=== PATIENT | female | born 1950 | race Caucasian/White ===

== ENCOUNTER 2025-01-20 08:26 | Inpatient (IN) | payer OTHER, SELFPAY ==
[2025-01-19] VITALS (8 sets, daily range): BP systolic 145–197; BP diastolic 82–131; BMI 33.8; BMI 33.1
[2025-01-19 08:50] LABS: Glucose - Point of Care 208 mg/dl (70-99)
--- NOTE | 2025-01-19 08:55 | EDRN ---
Dr. Reid in room at 8:55 and also present in CT scan.
--- NOTE | 2025-01-19 09:01 | ED.CVA ---
History of Present Illness
General
Chief Complaint: CVA/TIA Symptoms
Time Seen by Provider: 01/19/25 09:00
Onset of Stroke Symptoms
Onset of symptoms known: No
Time pt last seen normal is known: Yes
Date last time pt seen normal: 01/18/25
History of Present Illness
History of Present Illness:
TIME OF INITIAL EVALUATION
- 9 AM
REVIEW OF OLD RECORDS
- The patient has history of high blood pressure and hyperlipidemia. I reviewed old records but there were no other admissions to the hospital.
Note:
CHIEF COMPLAINT(S)
Left-sided weakness and facial droop.
HISTORY OF PRESENT ILLNESS
The patient is a 74-year-old female with left-sided weakness, particularly in the arm and face, noted upon waking at 8:00 AM. Last seen normal the previous night at 10:30 PM. She attempted to peanut picker a tissue with her left hand but was unable to do
so, and her spouse noted a facial droop on the left side. She has no symptoms suggesting leg weakness and does not take any anticoagulants. The neurologist commenced a 'stroke alert' protocol due to possible cerebrovascular accident, and the patient
is undergoing a CT scan for further evaluation. There is a concern for the timeline of the event, given that the last known normal was much earlier, at 10:30 PM the previous night, thus thrombolysis is not considered safe.
ADDITIONAL HISTORY OBTAINED FROM SOURCES OTHER THAN THE PATIENT
According to the spouse, the patient was in her normal state at 10:30 PM the previous night and did not report any overnight awakenings or disturbances.
SOCIAL HISTORY
The patient is a former smoker, having quit years ago.
FAMILY HISTORY
Family history of tremors; the patients father also had a similar condition.
PHYSICAL EXAM
- General: Well appearing in no distress
- HEENT: Moist oral mucosa
- Cardiovascular: No murmurs, normal heart rate, regular rhythm, No chest wall tenderness
- Pulmonary: No respiratory distress, breath sounds are clear and equal
- Abdomen: Soft with no peritoneal signs, no tenderness
- Neurologic: Excellent strength in all extremities although she reports some subjective weakness in the left upper extremity, no facial asymmetry, mild aphasia and mild dysarthria
- Psychiatric: Some mild confusion/aphasia noted however overall is answering questions appropriately
- Extremities: Nontender, no edema, moves all extremities equally
- Skin: No rash, no lesions
DIFFERENTIAL DIAGNOSIS
The Differential Diagnosis includes, in no particular order and is not limited to:
1. Cerebrovascular accident (ischemic or hemorrhagic stroke)
2. Transient ischemic attack
3. Intracranial hemorrhage
4. Seizure
5. Brain tumor
6. Migraine with aura
7. Elizabeth palsy
8. Multiple sclerosis
9. Metabolic disturbance (e.g., hypoglycemia)
10. Vestibular disorder
RADIOLOGY
- CT, CTA, CTP ordered
EKG
- Sinus 87, left axis deviation, left bundle branch block, prolonged QTc
LABS
- Initial blood glucose 208, CBC unremarkable
UPDATE
01/19/25 - 09:30
The initial CAT scan indicates a recent stroke without evidence of severe bleeding. Neurological assessment reveals minor weakness on the left side, but overall strength remains good. The patient experiences some communication difficulties,
specifically with speech, but comprehension is intact. Blood pressure remains elevated at 167/84, and the patient did not take their prescribed medication, Losartan, today. The neurologist will be consulted again to explore potential reversible
options for the current condition.
Stroke alert. Last normal 10:30pm last night. Woke up at 8a and could not peanut picker Kleenex with her left hand and noted facial asymmetry along w/ some aphasia and dysarthria. Still has mild aphasia and subjective LUE weakness currently. CT
head no bleed, but there is diminished attenuation R frontal M4. CTP 0%. CTA H/N negative. Initial BP 190s/130s and repeat w/o intervention 160s/80s. She did not take her morning Losartan. EKG sinus LBBB. She takes no antiplatelets nor
anticoagulants.
SUMMARY OF ENCOUNTER
Patient presented with left-sided weakness and facial droop, suggesting a cerebrovascular event.
DISPOSITION
Plan to keep patient in the hospital for further evaluation for acute CVA.
ASSESSMENT
Right-sided brain abnormality observed on CT scan, indicative of a likely stroke.
INDEPENDENT REVIEW OF LABS AND INTERPRETATION OF TESTS
My independent interpretation of the CT scan is an abnormality on the right side of the brain consistent with a stroke event.
MEDICATION RECONCILIATION
Plavix (clopidogrel) and aspirin were administered for antiplatelet therapy. Losartan resumed at a dose of 50 mg for blood pressure management.
MEDICAL DECISION MAKING
1. Number & Complexity of Problems: Potential stroke with focal neurological deficits.
2. Data Reviewed: CT scan reviewed indicating right-sided abnormality.
3. Risk: Consideration of admission was made due to complexity and risk of progression of neurological symptoms; continued inpatient evaluation is appropriate.
PATHOLOGIES TO CONSIDER
- Stroke (focal neurologic deficits + sudden onset).
I called at [facility] to get losartan dosing, however their office is closed on Saturdays
Phy Exam
Physical Exam
Physical Exam:
See HPI
Course
Orders/Labs/Results
Orders:
Orders
01/19/25 08:57
Electrocardiogram (*1) Urgent
Reason for Study: Chest Pain
EKG- Treatment ONCE
IV Insert/Care/Rem.- Treatment PRN
01/19/25 08:59
Complete Blood Count/With Diff Urgent
Comprehensive Metabolic Panel Urgent
Prothrombin Time Urgent
Troponin I Urgent
01/19/25 09:[address]
CT BRAIN PERF STROKE ALERT Urgent
Comment:
Reason For Exam: wake up stroke
CT HEAD STROKE ALERT W/o Cont Urgent
Comment:
Reason For Exam: wake up stroke L weak
CT HEAD/NECK ANG STROKE ALERT Urgent
Comment:
Reason For Exam: wake up stroke
Abnormal Lab Results
01/19/25
08:49
POC Glucose 208 H mg/dl
(70-99)
01/19/25 08:59
Vital Signs
Initial and Last Documented VS:
Initial Vital Signs
Temp Pulse Resp BP Pulse Ox
36.6 C 104 18 197/131 96
01/19/25 08:47 01/19/25 08:47 01/19/25 08:47 01/19/25 08:47 01/19/25 08:47
Last Documented Vital Signs
Temp Pulse Resp BP Pulse Ox
36.6 C 94 15 167/84 97
01/19/25 08:47 01/19/25 09:25 01/19/25 09:25 01/19/25 09:25 01/19/25 09:25
*Pulse Oximetry
SaO2: 96
Oxygen Mode of Delivery: Room air
Patient hypoxic: no
*Mica Plate Layer Interpretation
Rate: normal
Interpretation: normal
Heart Rate: 88
Rhythm: sinus
*Critical Care Note
Total Time (30-74mins, 75-104mins- exclusive of procedures): Not Applicable
ED Attending Note
-
Portions of this chart may have been created with voice recognition software.� Occasional wrong word or��sound alike� substitutions may have occurred due to the inherent limitations of voice recognition software.
Discharge Plan
Interventions
Interventions:
*Risk Screen - Suicide Last Done: 01/19/25 08:47
*General Assessment Last Done: 01/19/25 09:26
*Neglect/Abuse Screening Last Done: 01/19/25 08:47
*ED- Fall Risk Assessment Last Done: 01/19/25 09:26
*ED COVID-19 Vaccine History Last Done: 01/19/25 09:26
Discharge Date and Time
Print Language: CROATIAN
[2025-01-19 09:06] LABS: % Basophils 0.7 % (0-2); % Eosinophils 3.3 % (0-6); % Immature Granulocytes 0.3 % (0-0.5); % Lymphocytes 42.2 % (20.5-51.1); % Monocytes 7.9 % (1.7-9.3); % Neutrophils 45.6 % (42.2-75.2); Absolute Eosinophils 0.2 10^3/uL (0-0.7); Absolute Lymphocytes 2.5 10^3/uL (1.2-3.4); Absolute Monocytes 0.5 10^3/uL (0.1-0.6); Absolute Neutrophils 2.7 10^3/uL (1.4-6.5); Hematocrit 42.3 % (37.0-47.0); Hemoglobin 14.5 g/dL (12.0-16.0); Mean Corp Hgb Conc. 34.3 g/dL (33.0-37.0); Mean Corpuscular Hgb 29.6 pg (27.0-31.0); Mean Corpuscular Volume 86.3 fL (81.0-99.0); Mean Platelet Volume 9.6 fL (7.4-10.4); Nucleated Red Blood Cells % 0 %; Platelet Count 217 10^3/uL (130-400); Red Cell Dist. Width 13.2 % (11.5-14.5); White Blood Cell Count 5.8 10^3/uL (4.8-10.8)
--- NOTE | 2025-01-19 09:15 | CON.NEURO ---
Consultation
Order
Date of Consultation: 01/19/25
Requesting Provider: Zeke Gaytan DO
Reason for Consult: Stroke alert
Called in at 8:52 AM
Neurology Consultation Note.
HPI: This is a 74-year-old left-handed woman who presented to [facility] on 01/19/2025 with dysarthria and left-sided hemiparesis. The patient reports waking up this morning experiencing weakness on her left side and difficulty with
speech. Last time seen in usual state of health�11 PM on 01/20/2025. No reports of headache, change in vision, sensation.
Maty takes losartan regularly for her hypertension. She does not report any recent changes in her medication regimen or any issues with adherence.
ER VS: 197/131, 104, afebrile
Labs: [id number]
CT head wo contrast-subtle diminished attenuation involving dawkins and white matter in the right frontal lobe M4 distribution
CTA head/neck-pending
PMH:HTN
SH: , non-smoker
FH: Tremor
All:NKDA
ROS: Positive for dysarthria, left-sided weakness.
NIH Stroke Scale
1A Level of Consciousness: 0/3
1B LOC Questions: 0/2
1C LOC Commands: 0/2
2 Best Gaze: 0/2
3 Visual: 0/3
4 Facial Palsy: 0/3
5A Motor Arm LEFT: 1/4
5B Motor Arm RIGHT: 0/4
6A Motor Leg LEFT: 0/4
6B Motor Leg RIGHT: 0/4
7 Limb Ataxia: 0/2
8 Sensory: 0/2
9 Best Language: 0/3
10 Dysarthria: 1/2
11 Extinction/Inattention: 0/2 .
Total NIHSS: 2
Assessment and Plan:
I. Acute right thalamic stroke. No evidence of cortical sensory dysfunction. Not a candidate for IV TNK due to timing of the symptoms onset
II. Hypertensive emergency
III. Hyperglycemia
- Continue Telemetry monitoring
- Aspiration precautions
- Cautious lowering of BP by approximately 15 % during the first 24 hours is SBP >220 mmHg or diastolic blood pressure >120 mmHg
- Restart antihypertensive medications if BP>140/90 mmHg and neurologically stable in 24 to 48 hours after stroke onset
- Please follow-up CTA head and neck results
- DAPT after Plavix load
-TTE
-Lipitor 40 mg QHS.
-Please check HbA1C, LDL.
-Brain MRI without renee
-DVT prophylaxis.
I personally reviewed all radiology and labs along with past medical records pertinent to current medical problems. Total time spent in patient care is 60 minutes.
Thank you for allowing us to participate in the care of this patient. We will continue to follow. Please do not hesitate to contact us with any questions or concerns.
Subjective/Objective
Subjective Data
Date of Service: January 19, 2025
Objective Data
Vital Signs
Temp Pulse Resp BP Pulse Ox
36.6 C 104 18 197/131 96
01/19/25 08:47 01/19/25 08:47 01/19/25 08:47 01/19/25 08:47 01/19/25 09:04
Lab Results
01/19/25 08:59
Vital Signs and Labs
-
Vital Signs and Labs:
Vital Signs
Temp Pulse Resp BP Pulse Ox
36.6 C 104 18 197/131 96
01/19/25 08:47 01/19/25 08:47 01/19/25 08:47 01/19/25 08:47 01/19/25 09:04
Lab Results
01/19/25 08:59
[2025-01-19 09:25] LABS: INR 0.91; PT 12.5 Sec (11.4-14.6)
--- NOTE | 2025-01-19 09:28 | EDRN ---
Dr. Comer in room w/ pt.
[2025-01-19 09:33] LABS: Troponin I < 0.012 ng/ml
[2025-01-19] MEDS: PLAVIX 300 MG PO (09:58)
[2025-01-19] MEDS: COZAAR 50 MG PO (09:58)
[2025-01-19] MEDS: ASPIRIN 325 MG PO (09:58)
[2025-01-19 10:18] LABS: ALT (SGPT) 26 U/L (0-35); AST (SGOT) 21 U/L (14-36); Albumin 4.3 g/dl (3.5-5.0); Alkaline Phosphatase 71 U/L (38-126); Blood Urea Nitrogen 15 mg/dl (7-17); Calcium 9.6 mg/dl (8.4-10.2); Carbon Dioxide 26 mmol/L (22-30); Chloride 108 mmol/L (98-107); Estimated Creatinine Clearance 79 ml/min; Glucose 225 mg/dl (70-99); Sodium 140 mmol/L (135-145); Total Bilirubin 0.4 mg/dl (0.2-1.3); Total Protein 7.3 g/dl (6.3-8.2); eGFR > 60.00
--- NOTE | 2025-01-19 10:23 | EDRN ---
Hospitalist in room w/pt at this time.
--- NOTE | 2025-01-19 10:38 | HPS.HSE ---
Family Physician
-
Family Physician: Randolph Rivas
Chief Complaint
-
Left-sided weakness
History of Present Illness
74-year-old female past medical history as below who is presenting from home with complaints of left upper extremity weakness. Patient went to bed last night without any difficulty. This morning when she woke up she had trouble with her left upper
extremity. Was unable to hold onto pack of tissue. Also with slurred speech and expressive aphasia. Denied any left lower extremity weakness. Denies any left sided numbing or tingling sensation. Denies any headache, neck pain, vision problems,
chest pain, shortness of breath. Denies any lightheadedness, dizziness, nausea, vomiting. Patient was found to be a stroke alert in the ER and underwent CT of the head and CT angiogram of the head and neck. Patient states she has a history of
hypertension and has been taking losartan. States her blood pressure is elevated with systolic blood pressure in 150s at times. Also was recently started on atorvastatin. Did have a drink of alcohol last night. However occasionally drinks.
Currently states her left upper extremity weakness is improving.
Medical History
Past Medical History
Past Medical History: Reports HTN and Hypercholesterolemia
Past Surgical History: Reports None
Social History
Tobacco: Former Smoker
Alcohol: Occasional
Personal:
Family History
Family History: Not pertinent
Allergies / Home Medications
Allergies reflects when Allergies were last updated in [facility].
Home Medications with original date entered in [facility]
Allergy/Medication List:
Allergies
Allergy/AdvReac Type Severity Reaction Status Date / Time
No Known Allergies Allergy Verified 01/19/25 09:47
Home Medications
atorvastatin 10 mg tablet 10 mg PO DAILY 01/19/25
losartan 100 mg tablet 100 mg PO DAILY 01/19/25
Review of Systems
-
History Source: Patient
A 12 point ROS was completed and negative except as noted: Yes
Physical Exam
Vital Signs
Vital Signs
Temp Pulse Resp BP Pulse Ox
97.8 F 88 15 167/84 97
01/19/25 08:47 01/19/25 09:58 01/19/25 09:25 01/19/25 09:58 01/19/25 09:25
Physical Exam
General: Well Developed, Well Nourished, No Apparent Distress and Slurred Speech
HEENT: NormoCephalic, Moist mucous membranes, Atraumatic, Nose Appears Normal and Ears Appear Normal; No Hearing Impaired
Respiratory: Clear
Cardiac: S1/S2 and Regular Rhythm; No Murmur or Rub
GI: Soft, Non Tender, Non Distended and Normal Bowel Sounds; No Organomegaly
Rectal: Deferred by Provider
Musculoskeletal: No Clubbing, No Cyanosis and No Edema
Skin: No Rash
Neuro: Awake, Alert, Oriented, AO x 3, Nonfocal/grossly intact, Slurred Speech and Facial Droop; No No Motor Deficits (LUE weakness)
Psych: Calm
Laboratory Results
-
01/19/25 08:59
01/19/25 08:59
Laboratory Results
PT 12.5 Sec (11.4-14.6) 01/19/25 08:59
INR 0.91 01/19/25 08:59
Total Bilirubin 0.4 mg/dl (0.2-1.3) 01/19/25 08:59
AST 21 U/L (14-36) 01/19/25 08:59
ALT 26 U/L (0-35) 01/19/25 08:59
Alkaline Phosphatase 71 U/L (38-126) 01/19/25 08:59
Troponin I < 0.012 ng/ml 01/19/25 08:59
Data Reviewed
-
CT Scan: Report Reviewed by me, Discussed with Patient and Discussed with Family
Lab Data: Labs Reviewed by me and Discussed with Patient
Impression/Plan
-
#Left upper extremity weakness, slurred speech, facial droop likely secondary to TIA versus rule out CVA
CT of the head negative for acute pathology. No acute intracranial hemorrhage noted. Subtle diminished attenuation involving dawkins and white matter in the right frontal lobe M4 distribution. No mass effect. Relatively bilateral subcortical
chronic microvascular white matter ischemic change
CT angiogram of the head and neck without significant plaque, stenosis, occlusion or dissection
MRI of the brain ordered and pending
Status post loading dose of Plavix and aspirin
Start patient on dual antiplatelet regimen with aspirin and Plavix
Check lipid panel and A1c
Physical, occupational and speech therapy evaluation
Monitor on telemetry
If MRI positive for stroke send check echocardiogram
Permissive hypertension and blood pressure control per neurology
as needed blood pressure medication if systolic blood pressure getting 220/120
Continue with NIH stroke scale per the protocol
#Primary hypertension
#Hypertension emergency
Will need strict blood pressure control
Restart home regimen in morning
#Hyperlipidemia
Check lipid panel
Continue with Lipitor for now
#Obesity due to excess calories
Affects all aspect of medical care
DVT prophylaxis SCDs for now
Full code
I spent a total of 80 minutes with the patient or on the floor. More than 50% of this time involved counseling and coordination of care.
--- NOTE | 2025-01-19 15:49 | PTOTSP ---
Speech therapy
Presentation: Patient was fully oriented, followed commands, and participatory during the session. Patient shared that she feels as though she experiences slow processing as it takes her a second to 'come up with the words'. SHEET METAL WELDER also noted very mild
dysarthric speech (imprecise consonants, decreased volume, and short utterances). Patient stated that she feels as though her speech sounds (slurred) which would likely describe the dysarthric speech noted by SHEET METAL WELDER. Of note, patient's intelligibility
is WNL and patient is able to communicate her wants/ needs.
Swallowing Function: SHEET METAL WELDER observed patient with several bites of cracker and straw sips of thin liquid in which patient appeared to tolerate as she did not exhibit any overt clinical s/sx of aspiration or difficulty with mastication/ manipulation.
Patient denied any dysphagia complaints.
Per RN, patient tolerated meal tray (reg/ thin) and medications whole with thin liquids.
Recommendations:
1) Continuation of regular consistency solids and thin liquids
2) Standard aspiration precautions
3) Medications as tolerated
4) Consider speech/ lang/ cognitive evaluation
Plan: SHEET METAL WELDER will continue to follow to ensure tolerance; pending hospitalization.
[2025-01-20] VITALS (12 sets, daily range): BP systolic 107–174; BP diastolic 53–102; BMI 32.9
[2025-01-20 06:59] LABS: % Basophils 0.7 % (0-2); % Eosinophils 1.6 % (0-6); % Immature Granulocytes 0.5 % (0-0.5); % Lymphocytes 31.9 % (20.5-51.1); % Monocytes 6.8 % (1.7-9.3); % Neutrophils 58.5 % (42.2-75.2); Absolute Basophils 0.1 10^3/uL (0-0.2); Absolute Eosinophils 0.2 10^3/uL (0-0.7); Absolute Immature Granulocytes 0.1 10^3/uL (0-0.05); Absolute Monocytes 0.7 10^3/uL (0.1-0.6); Absolute Neutrophils 5.6 10^3/uL (1.4-6.5); Hematocrit 41.3 % (37.0-47.0); Mean Corp Hgb Conc. 33.9 g/dL (33.0-37.0); Mean Corpuscular Hgb 29.2 pg (27.0-31.0); Mean Platelet Volume 9.9 fL (7.4-10.4); Nucleated Red Blood Cells % 0 %; Platelet Count 250 10^3/uL (130-400); Red Cell Dist. Width 12.9 % (11.5-14.5); White Blood Cell Count 9.5 10^3/uL (4.8-10.8)
[2025-01-20 07:15] LABS: Glucose - Point of Care 204 mg/dl (70-99)
--- NOTE | 2025-01-20 07:33 | RR ---
A Rapid Response was called on this patient, please see Rapid Response form.
--- NOTE | 2025-01-20 07:33 | PTCARENOTE ---
NIHSS performed noted left sided facial droop, dysrthria, slurred speech, impaired vision. Rapid response and stroke alert called.
--- NOTE | 2025-01-20 07:35 | W.PN.NEURO.1 ---
Today's Communication / Plan
-
.
Subjective/Objective
Subjective Data
Date of Service: January 20, 2025
Stroke alert: called in: 7:18 AM
Neurology Follow up Note.
Ms. Meredith was noted to have worsening of left hemiparesis and worsening of NIH score from 1-6. The patient reports experiencing a 'little' headache.
VS: 107/79, 104, afebrile. Glucose�197.
The last assessment was reportedly done at 4 o'clock. BP at 23:46 was 184/90.
The patient's blood pressure was recorded at 189/130.
CT head( my read)-large R parenchymal ICH with min edema/shift.
Brain MRI-acute R MCA territory infarct, acute ICH (official read-pending).
LDL-69
PMH: HTN, DLP
SH: , non-smoker
FH: tremor
All:NKDA
ROS: Positive for dysarthria, left-sided weakness.
NIH Stroke Scale
1A Level of Consciousness: 0/3
1B LOC Questions: 0/2
1C LOC Commands: 0/2
2 Best Gaze: 0/2
3 Visual: 2/3
4 Facial Palsy: 0/3
5A Motor Arm LEFT: 1/4
5B Motor Arm RIGHT: 0/4
6A Motor Leg LEFT: 0/4
6B Motor Leg RIGHT: 0/4
7 Limb Ataxia: 1/2
8 Sensory: 0/2
9 Best Language: 0/3
10 Dysarthria: 2/2
11 Extinction/Inattention: 0/2 .
Total NIHSS: 6
Assessment and Plan:
I. Acute large R parenchymal ICH. Likely etiology�hemorrhagic conversion of R BG stroke. ICH score-1.
II. Hypertensive emergency
III. Hyperglycemia
- ICU transfer
- Telemetry monitoring
- Aspiration precautions
- Maintain elevation of HOB 30-45 degrees
- Continuous monitoring using pulse oximetry if O2 saturation is <96%
- Normal saline should be used for maintenance and replacement fluids.
- Neurosurgery consultation(notified)
- If elevated intracranial pressure is suspected or herniation is apparent in imaging- Hyperventilate to maintain pCO2 25mm for a maximum length of time of 6 hours; Osmotic diuresis using Mannitol: load 1g per kg IV bolus and maintain on 0.5g per kg
IV Q6h; check serum osmolality 1 hour prior to each dose. Dose should be held if serum osm>310
- Treat persistently elevated MAP>110 with Labetalol IV
- The available data from trials of patients with spontaneous ICH (the PATCH trial) suggest that empiric platelet transfusions in those without thrombocytopenia may be hazardous and should generally be avoided
- SCD/DEIDRA.
- The case was discussed with patient's spouse over the phone. All questions were answered.
I personally reviewed all radiology and labs along with past medical records pertinent to current medical problems. Total time spent in patient care is 60 minutes.
Thank you for allowing us to participate in the care of this patient. We will continue to follow. Please do not hesitate to contact us with any questions or concerns.
Objective Data
Vital Signs
Temp Pulse Resp BP Pulse Ox
36.8 C 99 18 146/93 96
01/20/25 03:59 01/20/25 03:59 01/20/25 03:59 01/20/25 03:59 01/20/25 03:59
Lab Results
01/20/25 06:29
PT 12.5 Sec (11.4-14.6) 01/19/25 08:59
INR 0.91 01/19/25 08:59
Sodium 140 mmol/L (135-145) 01/19/25 08:59
Potassium 4.0 mmol/L (3.5-5.1) 01/19/25 08:59
BUN 15 mg/dl (7-17) 01/19/25 08:59
Glucose 225 mg/dl (70-99) H 01/19/25 08:59
Calcium 9.6 mg/dl (8.4-10.2) 01/19/25 08:59
Patient Allergies
No Known Allergies Allergy (Verified 01/19/25 09:47)
Vital Signs and Labs
-
Vital Signs and Labs:
Vital Signs
Temp Pulse Resp BP Pulse Ox
37.2 C 104 16 107/79 95
01/20/25 07:15 01/20/25 07:15 01/20/25 07:15 01/20/25 07:15 01/20/25 07:15
Lab Results
01/20/25 06:29
01/20/25 06:29
PT Cancelled 01/20/25 07:21
INR Cancelled 01/20/25 07:21
APTT Cancelled 01/20/25 07:21
Sodium 137 mmol/L (135-145) 01/20/25 06:29
Potassium 4.4 mmol/L (3.5-5.1) 01/20/25 06:29
BUN 10 mg/dl (7-17) 01/20/25 06:29
Glucose 197 mg/dl (70-99) H 01/20/25 06:29
Calcium 9.7 mg/dl (8.4-10.2) 01/20/25 06:29
LDL Cholesterol, Calc 69 mg/dl 01/20/25 06:29
Medications
-
Medications:
Generic Name Dose Route Start Last Admin
Trade Name Freq PRN Reason Stop Dose Admin
Acetaminophen 650 mg 01/19/25 12:31
Acetaminophen 650 Mg Rectal Suppository RECTAL 02/16/25 12:30
Q4HPRN PRN
MOLINA, mild pain, or temp >100.4F
Acetaminophen 650 mg 01/19/25 12:31
Acetaminophen 325 Mg Tablet PO 02/16/25 12:30
Q4HPRN PRN
MOLINA, mild pain, or temp >100.4F
Atorvastatin Calcium 10 mg 01/20/25 08:00
Atorvastatin (Lipitor) 10 Mg Tablet PO 02/17/25 07:59
DAILY ARVIND
Hydralazine HCl 5 mg 01/19/25 12:31
Hydralazine 20 Mg/Ml Vial IV 02/16/25 12:30
Q4HPRN PRN
BP>220/120
Nicardipine/Sodium Chloride 40 mg in 200 mls @ 0 mls/hr 01/20/25 08:32
Cardene IV
PER PROTOCOL ARVIND
Protocol
Per Protocol
Losartan Potassium 100 mg 01/20/25 08:00
Losartan 100 Mg Tablet PO 02/17/25 07:59
DAILY ARVIND
Home Medications
-
Home Medications
atorvastatin 10 mg tablet 10 mg PO DAILY 01/19/25
losartan 100 mg tablet 100 mg PO DAILY 01/19/25
[2025-01-20 07:38] LABS: Blood Urea Nitrogen 10 mg/dl (7-17); Calcium 9.7 mg/dl (8.4-10.2); Carbon Dioxide 22 mmol/L (22-30); Chloride 108 mmol/L (98-107); Estimated Creatinine Clearance 78 ml/min; Glucose 197 mg/dl (70-99); HDL Cholesterol 65 mg/dl; LDL Cholesterol, Calculated 69 mg/dl; Potassium 4.4 mmol/L (3.5-5.1); Sodium 137 mmol/L (135-145); Total Cholesterol 161 mg/dl (50-199); Triglyceride 138 mg/dl (10-149); Very Low Density Lipoprotein 27 mg/dl (0-30); eGFR > 60.00
--- NOTE | 2025-01-20 08:22 | CON.INTV ---
Consultation
Consultation Request
Date/Time Consultation Requested: 01/20/2025
Date/Time Consultation Performed: 01/20/2025
Requesting Provider: Dhaval Pickens
Performing Provider: Jaelyn Moore
Reason for Consultation: Stroke
Medical History
-
Chief Complaint: Left-sided weakness
History of Present Illness:
Patient is a 80-year-old gentleman who was admitted to the hospital on 01/19 after he presented with complaints of left extremity weakness. Also reported some slurred speech and expressive aphasia. Stroke alert was called and patient had a CT head
as well as CTA of head and neck which did not show any large blockage. Patient was given loading dose of Plavix and continued on aspirin in addition. And was admitted to the hospitalist service. Patient was also evaluated by neurology service.
TNK was not pursued due to timing of the symptom onset and low large vessel blockage was noted on the imaging. Presumed diagnosis at admission was acute right thalamic stroke.
01/20, patient had change in neuro status, worsening dysarthria, prompting another stroke alert and had a CT and CTA which was suggestive of intracranial hemorrhage, following which patient was transferred to the ICU and meter reader inspector consult was
requested for further input.
Past Medical History
Past Medical History: Reports HTN and Hypercholesterolemia
Past Surgical History: Reports None
Social History
Tobacco: Former Smoker
Alcohol: Occasional
Personal:
Family History
Family History: Not pertinent
Allergies / Home Medications
Allergies / Home Medications
Allergies
Allergy/AdvReac Type Severity Reaction Status Date / Time
No Known Allergies Allergy Verified 01/19/25 09:47
Home Medications
�Medication �Instructions �Recorded �Confirmed �Last Taken �Type
atorvastatin 10 mg tablet 10 mg PO DAILY 01/19/25 01/19/25 01/18/25 History
losartan 100 mg tablet 100 mg PO DAILY 01/19/25 01/19/25 Unknown History
Review of Systems
-
Hematologic/Lymphatic: Other (Patient has dysarthric speech overall protecting airways, no new symptoms reported. Mild headache reported.)
Vitals / Labs / Diagnostic Testing
Vital Signs
Temp Pulse Resp BP Pulse Ox
98.9 F 104 16 107/79 95
01/20/25 07:15 01/20/25 07:15 01/20/25 07:15 01/20/25 07:15 01/20/25 07:15
Lab Data
01/20/25 06:29
01/20/25 06:29
Laboratory Results
01/19/25 01/20/25
08:59 07:21
PT 12.5 Cancelled
INR 0.91 Cancelled
APTT Cancelled
Diagnostic Testing:
Physical Exam
-
HEENT: Normocephalic and Other (Left facial droop noted, dysarthria noted.)
Cardiovascular: S1/S2
Respiratory: Clear
GI: Soft and Non Distended
Neurology: Awake and Alert
Skin: Warm
General: Comfortable
Assessment
-
#1. Acute CVA, now with hemorrhagic transformation
- CT and CTA on 01/19 were without any intracranial hemorrhage, TNK was not pursued due to time since onset of symptoms and patient was given Plavix load followed by dual antiplatelet therapy
- Follow-up CT head, 01/20 shows development of superior right frontal lobe hematoma with mild adjacent surrounding edema and mild cerebral sulcal effacement. No significant compression of lateral ventricle or midline shift. Hold both aspirin and
Plavix
- Monitor closely in ICU, every neurochecks, nicardipine drip, SBP target less than 140
- Neurology and neurosurgery service on case
- Follow-up CT scan per neurosurgery recommendations
- Patient dysarthric however currently protecting her airways
- Sodium goal, 140-145. Will give 3% normal saline bolus
#2. Hypertension
- Permissive hypertension was initially pursued, now considering intracranial hypertension, target SBP goal 100-140
- Nicardipine infusion as needed
- Discussed with neurosurgery service, A-line placed for invasive monitoring
#3. Hyperlipidemia
-Statins
DVT prophylaxis, SCDs for now.
Critical Care time 67 mins -- The patient is admitted for acute critical illness for the treatment of vital organ failure and/or prevention of further life-threatening conditions. Total care includes time spent in review of history, physical exam,
medications, hemodynamic/ventilator parameters, laboratory data, imaging and discussion with house staff, pharmacy, respiratory therapy, professor of religion, and nursing.
Data:
EKG 12/2024: Left bundle branch block
CT Head 12/2024: No acute intracranial hemorrhage.
Subtle diminished attenuation involving dawkins and white matter in the right frontal lobe M4 distribution. ASPECT: 9. No mass effect.
Otherwise, relatively mild bilateral subcortical chronic microvascular white matter ischemic change.
[2025-01-20 09:16] LABS: Glucose - Point of Care 209 mg/dl (70-99)
--- NOTE | 2025-01-20 09:26 | W.PN.HOSP.TC ---
Addendum entered and electronically signed by Dhaval Pickens MD 01/20/25 15:19:
Repeat CT head with persistent brain bleed. Per neurosurgery stable in size. Discussed with neurology, neurosurgery bar examiner. Patient will be transferred to [facility] under Dr Reed. Patient be transferred to [facility] ICU.
Discussed with ammunition specialist and case management and RN. signed a form. Family updated once again at bedside.
Original Note:
Today's Communication/Plan
-
Repeat CT head later today to assess
Hypertonic saline started
Monitor blood pressure with strict blood pressure control
Nicardipine drip ordered
Monitor closely in the ICU
Assessment / Plan
Assessment / Plan
General: Well Developed, Well Nourished, No Apparent Distress and Slurred Speech
HEENT: NormoCephalic, Moist mucous membranes, Atraumatic, Nose Appears Normal and Ears Appear Normal; No Hearing Impaired
Respiratory: Clear
Cardiac: S1/S2 and Regular Rhythm; No Murmur or Rub
GI: Soft, Non Tender, Non Distended and Normal Bowel Sounds; No Organomegaly
Rectal: Deferred by Provider
Musculoskeletal: No Clubbing, No Cyanosis and No Edema
Skin: No Rash
Neuro: Awake, Alert, Oriented, AO x 3, cranial nerves II to XII intact except for slurred speech, left-sided facial droop, left upper extremity weak, 4 out of 5 left upper extremity,
Psych:
#Left upper extremity weakness, slurred speech, facial droop and now with hemorrhagic conversion
CT of the head negative for acute pathology. No acute intracranial hemorrhage noted. Subtle diminished attenuation involving dawkins and white matter in the right frontal lobe M4 distribution. No mass effect. Relatively bilateral subcortical
chronic microvascular white matter ischemic change
CT angiogram of the head and neck without significant plaque, stenosis, occlusion or dissection
MRI of the brain results pending
Repeat CT head 01/20/25 with interval development of superior right frontal lobe acute hematoma measuring 3.2 x 2.9 x 3.5 cm yielding volume 17 cc. Mild adjacent surrounding edema. Mild cerebellar sulcal effacement. No significant compression of
the lateral ventricular midline shift. No other significant interval change.
Status post loading dose of Plavix and aspirin on admission. Aspirin and Plavix were discontinued.
Plan for strict blood pressure control and patient started nicardipine drip.
A-line placed for proper blood pressure management
Continue with NIH stroke scale and GCS
N.p.o. for now
Repeat CT head later today to assess for bleed.
Repeat BMP. Plan to start patient on 3% saline with goal of sodium 140-145 per neurosurgery
HOB 30-45%
Neurology, neurosurgery and ICU following
#Primary hypertension seems to be elevated even as outpatient
#Hypertension emergency
Currently on nicardipine drip infusion
#Hyperlipidemia
LDL 69.
Restart Lipitor upon repeat speech evaluation
#Hyperglycemia with undiagnosed diabetes mellitus type 2
A1c of 8.6
Will require diabetic education
Will order Accu-Cheks and insulin sliding scale for now
Will require initiation of therapy pending stabilization of stroke
#Obesity due to excess calories
Affects all aspect of medical care
DVT prophylaxis SCDs for now
Patient spouse was updated over the phone in details.
Total Critical Care Times 45 minutes. I was immediately available to the patient and staff. I personally examined, reviewed labs, diagnostic images/reports, interpretations, treatment plans, discussed patient care with other providers and family
or caregivers (if patient is unable to make decisions), entered orders as appropriate and documented the medical record.
Anticipated Discharge: > 48 hours
Subjective/Interval History
-
Date of Service: January 20, 2025
Patient with worsening of left upper extremity weakness and slurring of the speech
Stroke alert was called
Objective Data
-
Labs:
Laboratory Results
01/20/25 01/20/25 01/20/25
06:29 07:21 08:22
WBC 9.5
Hgb 14.0
Hct 41.3
Plt Count 250
PT Cancelled Pending
INR Cancelled Pending
APTT Cancelled Pending
Sodium 137
Potassium 4.4
Chloride 108 H
Carbon Dioxide 22
BUN 10
Creatinine 0.7
Glucose 197 H
Calcium 9.7
Vital Signs:
Vital Signs
Temp Pulse Resp BP Pulse Ox
98.9 F 104 16 107/79 95
01/20/25 07:15 01/20/25 07:15 01/20/25 07:15 01/20/25 07:15 01/20/25 07:15
I&O
01/19/25 01/20/25 01/21/25
06:59 06:59 06:59
Intake Total 720 / 720
Output Total 900 / 900
Balance -180 / -180
[2025-01-20 09:37] LABS: Glycohemoglobin (HgbA1c) 8.6 % (4.0-5.6)
[2025-01-20] MEDS: CARDENE 200 IV ×3 (09:45→16:13)
[2025-01-20 09:49] LABS: Magnesium 1.9 mg/dl (1.6-2.3); Phosphorus 3.1 mg/dl (2.5-4.5)
--- NOTE | 2025-01-20 09:49 | CON.NS ---
Consultation
-
Date/Time Consultation Performed: 01/20/25
Chief Complaint
History of Present Illness
74 yo female admitted yesterday for stroke. Hypertensive overnight, noted increase in NIH this am around 6-7am. MRI showed hemorrhagic conversion of right frontal stroke. CTP and CT completed which showed stability of ICH. Official reads are
pending. She was dosed plavix yesterday x1 dose, and ASA 81 mg. both are on hold. No reversal has been given. She currently has no complaints.
Review of Systems
-
10 pt ROS was completed and is negative except as stated in the HPI
Medication and Allergies
Home Medications
Home Medications
�Medication �Instructions �Recorded
atorvastatin 10 mg tablet 10 mg PO DAILY 01/19/25
losartan 100 mg tablet 100 mg PO DAILY 01/19/25
Allergies
Allergies
Allergy/AdvReac Type Severity Reaction Status Date / Time
No Known Allergies Allergy Verified 01/19/25 09:47
Physical Exam
-
Exam:
AAox3
[id number] confusion
CN's 2-12 intact except for left facial droop
Mild Left hemiparesis 4/5 in UE and LE
right full strength
CT head with 3cm left frontal ICH with mild amount of surrounding edema
Problems
-
Problem Status Onset Code
Acute cerebrovascular accident (CVA) Acute I63.9
Assessment / Plan
-
Hemorrhagic conversion of stroke
-strict BP goals of 100-140, place arterial line for better monitoring
-HOB 30
-repeat CT [address]
-hold ASA and plavix, consider reversal despite one dose
-Q1 neuro checks to include GCS and NIH
-Keep Na 140-145 (avoid hyponatremia)
-notify neurosurgery of any neuro changes
-if repeat CT shows worsening of hemorrhage will recommend transfer
--- NOTE | 2025-01-20 10:32 | OR.RPT ---
Operative Report
Operative Report
Right Radial Arterial catheter placement
Informed consent was obtained from patient. Need for invasive blood pressure monitoring in view of intracranial hemorrhage.
Bedside ultrasound was used to confirm patency of right radial artery. Under sterile condition, area was subsequently cleaned and a drape was placed. Under direct ultrasound visualization,, radial artery was cannulated. Once blood was noted in
the chamber guidewire was advanced. Arterial catheter was subsequently advanced over the guidewire, and then guidewire was removed. Pressure tubing was subsequently attached to the catheter and arterial waveform was noted on the monitor.
Subsequently a dressing was placed.
Complications: None
Time spent: 15 min
Date of service: 01/20/2025
--- NOTE | 2025-01-20 10:56 | PTCARENOTE ---
Arrived to this AM @ 0715. NIH- 7; new L facial droop, L arm weakness, L arm ataxia, L visual deficit, worsening dysarthria- see flow sheet. Pt. transported to CT scan emergently; new hematoma on imaging; results reviewed by Dr. Suarez. Pt.
transported to MRI and then transferred to ICU rm [id number]. Neurosurgery to bedside; updated on events of AM; per MD plan for repeat Heat CT approx 6H post initial, initiate q1h neuro checks, and keep SBP 100-140. SBP elevated into 170-180's; Cardene
gtt initiated to keep SBP w/ in goal range- see flow sheet. Dr. Moore to bedside; R rad art line inserted by asphalt paver operator; transduced, calibrated, and monitored; all ports patent and secured; correlates w cuff pressures. @ bedside,
updated. Pt. instructed on how to report care concerns and call lopez placed w in reach.
[2025-01-20] MEDS: SODIUM CHLORIDE 3% 250 IV (11:47)
[2025-01-20 12:07] LABS: Glucose - Point of Care 226 mg/dl (70-99)
[2025-01-20] MEDS: NOVOLOG FLEXPEN-LOW RESISTANCE 2 UNITS SC (12:16)
--- NOTE | 2025-01-20 13:23 | CM ---
Patient seen at bedside in ICU. Patient stated that her family member Oarcio was somewhere around but not in the room. Patient stated that she lives in a 2 story home and has had no DME in the past prior to admission. Patient PCP is Dr. Rivas, Patient
uses the [facility] in [place] for pharmacy needs. CM will continue to follow for discharge planning needs.
Plan; pending medical treatment plan; pending PT/OT possible SNF
[2025-01-20] MEDS: TRANDATE 10 MG IV (16:12)
--- NOTE | 2025-01-20 16:35 | W.DCSUMMARY ---
Discharge Summary
Discharge Data
Date of Admission: 01/20/25
Date of Discharge: 01/20/25
-
Pending Results: No
Hospital Course
67 year old female past medical history of primary hypertension, hyperlipidemia, presenting from home with left upper extremity weakness, slurred speech and facial droop. Patient was stroke alert on admission underwent CT of the head and CT
angiogram. Patient was not a tPA candidate. Patient went to sleep without any difficulty. Upon waking up on 01/19/2025 patient noticed left upper extremity weakness. CT of the head- No acute intracranial hemorrhage noted. Subtle diminished
attenuation involving dawkins and white matter in the right frontal lobe M4 distribution. No mass effect. Relatively bilateral subcortical chronic microvascular white matter ischemic change. CT angiogram of the head and neck without significant
plaque, stenosis, occlusion or dissection. Patient was eval by neurology on admission and received aspirin and Plavix loading dose. Patient was continued on losartan. Patient had worsening of left upper extremity weakness upon waking up on
01/20/2025 and stroke alert was called. Repeat CT head 01/20/25 with interval development of superior right frontal lobe acute hematoma measuring 3.2 x 2.9 x 3.5 cm yielding volume 17 cc. Mild adjacent surrounding edema. Mild cerebellar sulcal
effacement. No significant compression of the lateral ventricular midline shift. No other significant interval change. Patient was transferred to medical ICU. Patient was started nicardipine drip. Patient was eval by neurology, neurosurgery and
patient services technician. MRI of the brain was completed and it showed Rounded focus of acute hemorrhage involving the right frontal lobe, consistent with acute intraparenchymal hemorrhage/hemorrhagic infarct measuring 3.2 cm AP by 3.1 cm transverse by 3.4 cm
craniocaudal, with a volume of approximately 17 mL. Adjacent and surrounding mild edema. Overlying cerebral sulcal effacement. No other significant mass effect. No midline shift. Patient was also started on hypertonic saline per patient services technician.
Patient was also started nicardipine gtt for strict blood pressure control. Arterial line was also placed by patient services technician. Patient underwent repeat CT head 6 hours after initial CAT scan There is a large round acute intraparenchymal hemorrhage in
the superior right frontal lobe [id number] matter junction measuring 3.5 x 3.0 x 3.6 cm in AP, transverse, and craniocaudal dimensions (previously 2.9 x 2.9 x 3.5 cm in size at 7:45 AM). There is a mild amount of surrounding acute vasogenic
edema. There is effacement of the adjacent sulci. There is no midline shift or herniation. There is mild diffuse cerebral and cerebellar volume loss. There is a mild amount of low-attenuation white matter leukoaraiosis in both cerebral hemispheres.
There is no CT evidence for acute transcortical ischemic infarct. The right intracranial vertebral artery is tortuous causing mild compression on the right side of the medulla. There is mild calcific atherosclerotic plaque in both intracranial
vertebral arteries and moderate calcific atherosclerotic plaque in the intracranial internal carotid arteries. Per neurosurgery repeat CAT scan without much change in the size of the lesion. Neurosurgery recommended transfer to [facility]
for further management. This was discussed with patient, patient's spouse and other family member at bedside. They signed consent. All in agreement for transfer for higher level of care.
Portions of this chart may have been created with voice recognition software.� Occasional wrong word or �sound alike� substitutions may have occurred due to the inherent limitations of voice recognition software.
Discharge Plan
-
Patient Disposition: Acute Care Hospital
Condition: Critical
Discharge Orders:
Discharge Patient (As Directed); Ordered 01/20/25
Ordered By: Dhaval Pickens
Discharge Date and Time
Print Language: BAHAMIAN
--- NOTE | 2025-01-20 17:19 | PTCARENOTE ---
pt. transported down to CT scan for repeat Head CT @ approx 1400. Transported back to s/p imaging completion. Results reviewed by MD team; hemorrhagic stroke evolving. Decision made by MD team to transfer to [facility]. Report called to [facility] TENNIS DIRECTOR
Rosa Elena @ 1545. Ground transportation unavailable tonight for patients medical needs; Dr. Pickens made aware and received approval to fly patient to [facility]. [place] air squad arrived @ approx 1645; bedside report given and pt. discharge via air squad
stretcher w flight team to [facility] @ 1700. Pt.'s @ bedside, updated and pt.'s belongings sent with him. No further needs from this RN.
--- NOTE | 2025-01-22 08:56 | CM ---
Patient discharged to [facility] services on 01/20/25 @ 5:00PM. Patient discharge transport via air ambulance.
== END 2025-01-20 16:45 | disposition short-term general hospital (02) | DRG 64 ==
LOC: ICU 08:26
PROVIDERS: Emergency Medicine; ADMITTING PHYSICIAN Hospitalist; CONSULT PHYSICIAN Internal Medicine; CONSULT PHYSICIAN Neurological Surgery; CONSULT PHYSICIAN Psychiatry & Neurology Neurology; EMERGENCY PHYSICIAN Emergency Medicine; FAMILY PHYSICIAN Family Medicine
DX: I61.9 Nontraumatic intracerebral hemorrhage, unspecified (principal); G93.6 Cerebral edema; G81.94 Hemiplegia, unspecified affecting left nondominant side; I16.1 Hypertensive emergency; R47.01 Aphasia; I10 Essential (primary) hypertension; R29.810 Facial weakness; E78.00 Pure hypercholesterolemia, unspecified; E66.09 Other obesity due to excess calories; I44.7 Left bundle-branch block, unspecified; Z79.899 Other long term (current) drug therapy; Z87.891 Personal history of nicotine dependence
CPT/HCPCS: 0042T; 70450; 70496; 70498; 70551; 71045; 80048; 80053; 80061; 82962; 83036; 83735; 84100; 84484; 85025; 85610; 92610; 93005; 99285; Q9967

== ENCOUNTER 2025-03-29 08:30 | Outpatient (RCR) | payer OTHER, SELFPAY | END 2025-03-29 23:59 | disposition home or self-care (01) | LOC: ROT 08:30 | PROVIDERS: ATTENDING PHYSICIAN Physician Assistant Medical | DX: I69.322 Dysarthria following cerebral infarction (principal); I69.354 Hemiplegia and hemiparesis following cerebral infarction affecting left non-dominant side; I69.328 Other speech and language deficits following cerebral infarction; I69.392 Facial weakness following cerebral infarction; I69.318 Other symptoms and signs involving cognitive functions following cerebral infarction; Z73.6 Limitation of activities due to disability; R41.841 Cognitive communication deficit | CPT/HCPCS: 92507; 92523; 96125; 97129; 97130; 97167; 97537 ==

== ENCOUNTER 2025-04-24 10:22 | Outpatient (RCR) | payer OTHER, SELFPAY | END 2025-04-24 23:59 | disposition home or self-care (01) | LOC: ROT 10:22 | PROVIDERS: ATTENDING PHYSICIAN Physician Assistant Medical | DX: I69.322 Dysarthria following cerebral infarction (principal); I69.354 Hemiplegia and hemiparesis following cerebral infarction affecting left non-dominant side; I69.328 Other speech and language deficits following cerebral infarction; I69.392 Facial weakness following cerebral infarction; I69.318 Other symptoms and signs involving cognitive functions following cerebral infarction; Z73.6 Limitation of activities due to disability; R41.841 Cognitive communication deficit | CPT/HCPCS: 92507; 97129; 97130 ==

== ENCOUNTER 2025-05-03 10:13 | Outpatient (RCR) | payer OTHER, SELFPAY | END 2025-05-03 13:13 | disposition home or self-care (01) | LOC: ROT 10:13 | PROVIDERS: ATTENDING PHYSICIAN Physician Assistant Medical | DX: I69.322 Dysarthria following cerebral infarction (principal); I69.354 Hemiplegia and hemiparesis following cerebral infarction affecting left non-dominant side; I69.328 Other speech and language deficits following cerebral infarction; I69.392 Facial weakness following cerebral infarction; I69.318 Other symptoms and signs involving cognitive functions following cerebral infarction; Z73.6 Limitation of activities due to disability; R41.841 Cognitive communication deficit | CPT/HCPCS: 92507 ==